=== PATIENT | male | born 1985 | race Hispanic/Latino ===

== ENCOUNTER 2020-04-07 20:21 | Emergency (ER) | payer OTHER, SELFPAY ==
--- OUTSIDE RECORDS SUMMARY | 2020-04-07 20:24 | XMS REPORT | Continuity of Care Document ---
:1985 Author Organization [facility] t Address [address] [place] [address] Care Team Providers Name Role Phone Jamilah VALENCIA, Jose Rafael Attending Clinician Unavailable Lab, Fam Pob I Attending Clinician Unavailable Doctor Unassigned, Name Attending Clinician Unavailable Ric CARRASCO, Alexander Attending Clinician Problems This patient has no known problems. Allergies, Adverse Reactions, Alerts This patient has no known allergies or adverse reactions. Medications This patient has no known medications. Procedures This patient has no known procedures. Encounters Start End Encounter Admission Attending Care Care Encounter Source Date/Time Date/Time Type Type Clinicians Facility Department ID 2019-08-21 2019-08-21 Telephone Julia GORDON [id number] 00:00:00 00:00:00 Carol weinstein [id number] [place] [id number] [id number] 2019-08-19 2019-08-19 Laboratory Lab, [facility] [id number] 13:08:25 13:28:25 Only Fam Pob I Health [id number] [place] [id number] [place] [phone] [address] 2019-08-19 2019-08-19 Letter Doctor GORDON [id number] 00:00:00 00:00:00 (Out) Unassigned, DARREN [id number] [place] [id number] [id number] 2019-06-05 2019-06-05 Telemedici ERICA LariosMB [id number] 07:17:50 07:47:50 ne Visit Tacho Curry [id number] [place] [id number] [facility] [phone] [facility] 044 Building Results This patient has no known results.
--- NOTE | 2020-04-07 21:46 | EDPHYS ---
Physician Documentation [facility] Name: Blas Palma Jr Age: 34 yrs Sex: Male : 1985 Arrival Date: 04/07/2020 Time: 20:28 Bed 28 Private MD: Panfilo Gore HPI: 04/07 21:22 This 34 yrs old Male presents to ER via Ambulatory with complaints of Penile shamika Problem. 21:22 The patient presents with a possible STD exposure. Onset: The symptoms/episode shamika began/occurred 3 day(s) ago. Modifying factors: The symptoms are alleviated by nothing, the symptoms are aggravated by movement, pressure. Associated signs and symptoms: The patient has no apparent associated signs or symptoms. Severity of symptoms: At their worst the symptoms were mild, moderate, in the emergency department the symptoms are unchanged. The patient has not experienced similar symptoms in the past. Historical: - Allergies: 20:32 No Known Allergies; ll1 - PMHx: 20:32 Hypertension; ll1 - PSHx: 20:32 None; ll1 - Immunization history:: Flu vaccine is not up to date. - Social history:: Smoking status: Patient denies any tobacco usage or history of. - Family history:: not pertinent. ROS: 21:22 Constitutional: Negative for fever, chills, and weight loss, Eyes: Negative for injury, shamika pain, redness, and discharge, ENT: Negative for injury, pain, and discharge, Neck: Negative for injury, pain, and swelling, Cardiovascular: Negative for chest pain, palpitations, and edema, Respiratory: Negative for shortness of breath, cough, wheezing, and pleuritic chest pain, Abdomen/GI: Negative for abdominal pain, nausea, vomiting, diarrhea, and constipation, Back: Negative for injury and pain, MS/Extremity: Negative for injury and deformity, Skin: Negative for injury, rash, and discoloration, Neuro: Negative for headache, weakness, numbness, tingling, and seizure, Psych: Negative for depression, anxiety, suicide ideation, homicidal ideation, and hallucinations, Allergy/Immunology: Negative for hives, rash, and allergies, Endocrine: Negative for neck swelling, polydipsia, polyuria, polyphagia, and marked weight changes, Hematologic/Lymphatic: Negative for swollen nodes, abnormal bleeding, and unusual bruising. 21:22 : Positive for burning with urination, penile discharge, penile pain, of the head of penis and meatus. Exam: 21:22 Constitutional: This is a well developed, well nourished patient who is awake, alert, shamika and in no acute distress. Head/Face: Normocephalic, atraumatic. Eyes: Pupils equal round and reactive to light, extra-ocular motions intact. Lids and lashes normal. Conjunctiva and sclera are non-icteric and not injected. Cornea within normal limits. Periorbital areas with no swelling, redness, or edema. ENT: Nares patent. No nasal discharge, no septal abnormalities noted. Tympanic membranes are normal and external auditory canals are clear. Oropharynx with no redness, swelling, or masses, exudates, or evidence of obstruction, uvula midline. Mucous membranes moist. Neck: Trachea midline, no thyromegaly or masses palpated, and no cervical lymphadenopathy. Supple, full range of motion without nuchal rigidity, or vertebral point tenderness. No Meningismus. Chest/axilla: Normal chest wall appearance and motion. Nontender with no deformity. No lesions are appreciated. Cardiovascular: Regular rate and rhythm with a normal S1 and S2. No gallops, murmurs, or rubs. Normal PMI, no JVD. No pulse deficits. Respiratory: Lungs have equal breath sounds bilaterally, clear to auscultation and percussion. No rales, rhonchi or wheezes noted. No increased work of breathing, no retractions or nasal flaring. Abdomen/GI: Soft, non-tender, with normal bowel sounds. No distension or tympany. No guarding or rebound. No evidence of tenderness throughout. Back: No spinal tenderness. No costovertebral tenderness. Full range of motion. Skin: Warm, dry with normal turgor. Normal color with no rashes, no lesions, and no evidence of cellulitis. MS/ Extremity: Pulses equal, no cyanosis. Neurovascular intact. Full, normal range of motion. Neuro: Awake and alert, GCS 15, oriented to person, place, time, and situation. Cranial nerves II-XII grossly intact. Motor strength 5/5 in all extremities. Sensory grossly intact. Cerebellar exam normal. Normal gait. Psych: Awake, alert, with orientation to person, place and time. Behavior, mood, and affect are within normal limits. 21:22 : CVA tenderness, is absent, Male external genitalia: Patient is not circumisioned. erythema, lesion, of the head of penis and meatus, draining, erythematous, painful. 21:22 Musculoskeletal/extremity: Extremities: grossly normal except: erythema, pain, swelling, tenderness, Circulation is intact in all extremities. Sensation intact. Compartment Syndrome exam of affected extremity: is normal. Vital Signs: 20:29 BP 175 / 110; Pulse 97; Resp 17; Temp 97.9; Pulse Ox 99% ; Weight 104.33 kg; Height 5 ll1 ft. 9 in. (175.26 cm); Pain 4/10; 20:29 Body Mass Index 33.96 (104.33 kg, 175.26 cm) ll1 MDM: 20:33 Patient medically screened. [facility] 21:25 Differential diagnosis: UTI, urinary retention. Data reviewed: vital signs, nurses [facility] notes. Data interpreted: risk and compliance analytics director: not applicable for this patient encounter. Pulse oximetry: is not applicable for this patient encounter. on. Counseling: I had a detailed discussion with the patient and/or guardian regarding: the historical points, exam findings, and any diagnostic results supporting the discharge/admit diagnosis, the presence of at least one elevated blood pressure reading (>120/80) during this emergency department visit, lab results. 04/07 21:21 Order name: Wound Culture: HSV [facility] 04/07 21:22 Order name: Urine Culture [facility] 04/07 21:52 Order name: Glucose, Ancillary Testing [facility] 04/07 21:21 Order name: Blood Glucose Level; Complete Time: 21:54 [facility] 04/07 21:21 Order name: Urine Dipstick-Ancillary (obtain specimen); Complete Time: 21:51 [facility] Administered Medications: 21:51 Drug: Zithromax 1 grams Route: PO; 21:51 Drug: Rocephin (cefTRIAXone) 1 grams Route: IM; Site: right gluteus; 21:51 Drug: Valtrex 1000 mg Route: PO; 21:52 Drug: Doxycycline 200 mg Route: PO; Disposition: 04/07/20 21:45 Discharged to Home. Impression: Essential (primary) hypertension, Ulcer of penis - MULTIPLE. - Condition is Stable. - Discharge Instructions: Hypertension, Sexually Transmitted Disease, Sexually Transmitted Disease, Avbk-ii-[id number], Hypertension, Srhd-vz-[id number]. - Prescriptions for Bactroban 2 % Topical Ointment - Apply to affected area 1 application by TOPICAL route every 12 hours; 15 gram. Valtrex 1 g Oral Tablet - take 1 tablet by ORAL route every 12 hours for 10 days; 20 tablet. Doxycycline Hyclate 100 mg Oral Tablet - take 1 tablet by ORAL route every 12 hours; 20 tablet. - Medication Reconciliation Form, Thank You Letter, Antibiotic Education, Prescription Opioid Use form. - Follow up: Private Physician; When: 2 - 3 days; Reason: Recheck today's complaints, Continuance of care, Re-evaluation by your physician. Follow up: Edgar Padgett MD; When: 2 - 3 days; Reason: Recheck today's complaints, Re-evaluation by your physician. - Problem is new. - Symptoms have improved. Signatures: Dispatcher [employer] EDPanfilo Lee MD MD cha Habalo, Winsy, RN RN Monica Alves RN RN ll1 Corrections: (The following items were deleted from the chart) 22:16 21:45 04/07/2020 21:45 Discharged to Home. Impression: Essential (primary) wh hypertension; Ulcer of penis - MULTIPLE. Condition is Stable. Forms are Medication Reconciliation Form, Thank You Letter, Antibiotic Education, Prescription Opioid Use. Follow up: Private Physician; When: 2 - 3 days; Reason: Recheck today's complaints, Continuance of care, Re-evaluation by your physician. Follow up: Edgar Padgett; When: 2 - 3 days; Reason: Recheck today's complaints, Re-evaluation by your physician. Problem is new. Symptoms have improved. shamika
--- NOTE | 2020-04-07 21:46 | ER ---
Nurse's Notes [facility] Name: Blas Palma Jr Age: 34 yrs Sex: Male : 1985 Arrival Date: 04/07/2020 Time: 20:28 Bed 28 Private MD: Diagnosis: Essential (primary) hypertension;Ulcer of penis-MULTIPLE Presentation: 04/07 20:29 Chief complaint: Patient states: Sore/blisters to penile area for 5 days. Was on ll1 medicine for a yeast infection last week. Coronavirus screen: Client denies travel out of the [place] in the last 14 days. At this time, the client does not indicate any symptoms associated with coronavirus-19. Ebola Screen: Patient denies travel to an Ebola-affected area in the 21 days before illness onset. Initial Sepsis Screen: Does the patient meet any 2 criteria? HR > 90 bpm. No. Patient's initial sepsis screen is negative. Does the patient have a suspected source of infection? Yes: Other: penile blisters. Risk Assessment: Do you want to hurt yourself or someone else? Patient reports no desire to harm self or others. Onset of symptoms was April 03, 2020. 20:29 Method Of Arrival: Ambulatory ll1 20:29 Acuity: MARISSA 4 ll1 Historical: - Allergies: 20:32 No Known Allergies; ll1 - PMHx: 20:32 Hypertension; ll1 - PSHx: 20:32 None; ll1 - Immunization history:: Flu vaccine is not up to date. - Social history:: Smoking status: Patient denies any tobacco usage or history of. - Family history:: not pertinent. Screenin:45 Abuse screen: Denies threats or abuse. Denies injuries from another. Nutritional wh screening: No deficits noted. Tuberculosis screening: No symptoms or risk factors identified. Fall Risk None identified. Assessment: 20:45 General: Appears in no apparent distress. Behavior is calm, cooperative, appropriate wh for age. Pain: Complains of pain in penile pain. Neuro: Level of Consciousness is awake, alert, obeys commands, Oriented to person, place, time, situation, Appropriate for age. Cardiovascular: Capillary refill < 3 seconds. Respiratory: Airway is patent Respiratory effort is even, unlabored, Respiratory pattern is regular, symmetrical. GI: Abdomen is flat. : Blisters noted Lesions noted on penis. EENT: No signs and/or symptoms were reported regarding the EENT system. Derm: Skin is intact, is healthy with good turgor, Skin is pink, warm \T\ dry. normal. Musculoskeletal: Circulation, motion, and sensation intact. Vital Signs: 20:29 BP 175 / 110; Pulse 97; Resp 17; Temp 97.9; Pulse Ox 99% ; Weight 104.33 kg; Height 5 ll1 ft. 9 in. (175.26 cm); Pain 4/10; 20:29 Body Mass Index 33.96 (104.33 kg, 175.26 cm) ll1 ED Course: 20:28 Patient arrived in ED. 2 20:31 Triage completed. 1 20:32 Arm band placed on Patient placed in an exam room, on a stretcher. 1 20:33 Sohan Lewis, RN is Primary Nurse. 20:33 Panfilo Gannon MD is Attending Physician. [facility] 21:45 Edgar Padgett MD is Referral Physician. [facility] 21:45 Patient has correct armband on for positive identification. Bed in low position. Call light in reach. Side rails up X 1. Pulse ox on. NIBP on. 22:15 No provider procedures requiring assistance completed. Patient did not have IV access during this emergency room visit. Administered Medications: 21:51 Drug: Zithromax 1 grams Route: PO; 21:51 Drug: Rocephin (cefTRIAXone) 1 grams Route: IM; Site: right gluteus; 21:51 Drug: Valtrex 1000 mg Route: PO; 21:52 Drug: Doxycycline 200 mg Route: PO; Outcome: 21:45 Discharge ordered by . [facility] 22:15 Discharged to home ambulatory. 22:15 Condition: stable 22:15 Discharge instructions given to patient, Instructed on discharge instructions, follow up and referral plans. wound care, POC Demonstrated understanding of instructions, follow-up care, medications, wound care, POC Prescriptions given X 3. 22:16 Patient left the ED. Signatures: Panfilo Gannon MD MD cha Habalo, Winsy, RN ANNIE Sami Brothers 2 Monica Alves RN RN 1
[2020-04-07] MEDS ORDERED: WATER FOR INJ,STERILE 10 ML ONE (21:49)
[2020-04-07] MEDS ORDERED: DOXYCYCLINE 100 MG CAP PO ONE (21:49)
[2020-04-07] MEDS ORDERED: AZITHROMYCIN 250 MG TAB ONE (21:49)
[2020-04-07] MEDS ORDERED: CEFTRIAXONE 1000 MG/VIAL ONE (21:49)
[2020-04-07] MEDS ORDERED: VALACYCLOVIR 500 MG TAB ONE (21:55)
[2020-04-08 10:26] VITALS: BP 175/110; TEMP 97.9; O2SAT 99
== END 2020-04-07 22:16 | disposition home or self-care (01) ==
LOC: ER 20:21
DX: N48.5 Ulcer of penis (principal); I10 Essential (primary) hypertension
CPT/HCPCS: 82947; 87086; 87088; 87252; 96372; 99283

== ENCOUNTER 2020-09-11 02:55 | Emergency (ER) | payer SELFPAY ==
--- OUTSIDE RECORDS SUMMARY | 2020-09-11 02:57 | XMS REPORT | Continuity of Care Document ---
:1985 Author Organization [facility] t Address [address] [place] [address] Care Team Providers Name Role Phone Jamilah [...] ID 2019-08-21 2019-08-21 Telephone Julia GORDON [id number] 00:00:00 00:00:00 Carol weinstein [id number] [place] [id number] [id number] 2019-08-19 2019-08-19 Laboratory Lab, [facility] [id number] 13:08:25 13:28:25 Only Fam Pob I Health [id number] [place] [id number] [place] [phone] nal 0[address] 2019-08-19 2019-08-19 Letter Doctor GORDON [id number] 00:00:00 00:00:00 (Out) UnassDARREN brody [id number] [place] [id number] [id number] 2019-06-05 2019-06-05 Telemedici Ric NHBIANCA [id number] 07:17:50 07:47:50 ne Visit Tacho Curry [id number] [place] [id number] [facility] [phone] [place] [address] Building Results This patient has no known results.
[2020-09-11 05:51] LABS: Blood Gas Oxyhemoglobin 92.5 % (94-97); Blood O2 Saturation 94.1 % (92-98.5)
[2020-09-11] MEDS ORDERED: NA CHLORIDE 0.9% 1,000 ML ONE (06:18)
[2020-09-11 06:27] LABS: Absolute Lymphocytes (CBC) 1.2 K/uL (0.7-4.9); Basophils % 0.2 % (0-1.3); Hematocrit 44.6 % (39.6-49.0); Lymphocytes % 14.7 % (15.3-44.8); MPV 7.9 fL (7.6-11.3)
[2020-09-11 06:33] LABS: BUN Blood Urea Nitrogen 8 mg/dL (7-18); Bicarbonate 25 mmol/L (21-32); Glucose Level 107 mg/dL (74-106); Potassium 3.7 mmol/L (3.5-5.1); Sodium Level 130 mmol/L (136-145)
[2020-09-11] MEDS ORDERED: DIPHENOX/ATROP SULF 1 TAB PO ONE (07:32)
--- NOTE | 2020-09-11 08:18 | RAD REPORT ---
EXAM DESCRIPTION: CT - Chest For Pe Angio - 09/11/2020 6:23 am CLINICAL HISTORY: DYSPNEA COMPARISON: No comparisons FINDINGS: Chest Wall: No suspicious thyroid nodules or pathologic lymphadenopathy. Lungs: Mild to moderate bilateral ground-glass airspace disease. Pleura: No significant effusions or pneumothorax. Mediastinum/harshal: No pathologic lymphadenopathy. Pulmonary arteries/Aorta: No filling defect identified. No aortic aneurysm. Limited by motion. Heart: No significant pericardial effusion. Normal heart size. Upper abdomen: No acute abnormality. Bones: No acute abnormality. IMPRESSION: Negative for pulmonary embolism. Bilateral airspace disease in a pattern consistent with Covid-19 pneumonia.
[2020-09-11] MEDS ORDERED: FAMOTIDINE 20 MG/2 ML VIAL IV ONE (08:29)
--- NOTE | 2020-09-11 08:31 | RAD REPORT ---
EXAM DESCRIPTION: RAD - Chest Single View - 09/11/2020 4:46 am CLINICAL HISTORY: Cough;Dyspnea COMPARISON: No comparisons FINDINGS: Patchy areas of bilateral airspace disease which is mild peer The heart size is within nor mal limits.No acute osseous abnormality. No significant pleural effusions or pneumothorax. IMPRESSION: Mild patchy bilateral airspace disease concerning for multifocal pneumonia.
[2020-09-11] MEDS ORDERED: AZITHROMYCIN IV 500 MG in NA CHLORIDE 0.9% 250 ML IVPB ONE (09:00)
[2020-09-11] MEDS ORDERED: [UNRECOGNIZED DRUG - OTHER] IV ONE (09:00)
[2020-09-11] MEDS ORDERED: ASPIRIN 81 MG CHEWABLE TABLET ONE ×2 (09:22→11:13)
[2020-09-11] MEDS ORDERED: ZINC SULFATE 220 MG CAP ONE (09:22)
--- NOTE | 2020-09-11 10:35 | EDPHYS ---
Physician Documentation [facility] Name: Blas Palma Jr Age: 35 yrs Sex: Male : 1985 Arrival Date: 09/11/2020 Time: 02:59 Bed 14 Private MD: ED Physician Panfilo Gannon HPI: 09/11 06:14 This 35 yrs old Male presents to ER via Ambulatory with complaints of pkl Breathing Difficulty. 06:14 The patient has shortness of breath at rest. Onset: The symptoms/episode began/occurred pkl 3 day(s) ago. Associated signs and symptoms: Pertinent positives: non-productive cough, diarrhea. Historical: - Allergies: 03:52 No Known Allergies; bb - Home Meds: 03:52 None [Active]; bb - PMHx: 03:52 Hypertension; bb - PSHx: 03:52 None; bb - Immunization history:: Adult Immunizations up to date, Client reports having NOT received the Covid vaccine. - Social history:: Smoking status: Patient denies any tobacco usage or history of. ROS: 06:14 Eyes: Negative for injury, pain, redness, and discharge, ENT: Negative for injury, pkl pain, and discharge, Neck: Negative for injury, pain, and swelling, Cardiovascular: Negative for chest pain, palpitations, and edema. 06:14 Respiratory: Positive for shortness of breath, at rest. 06:14 Abdomen/GI: Positive for diarrhea. 06:14 Back: Negative for acute changes. 06:14 : Negative for urinary symptoms. 06:14 MS/extremity: Negative for acute changes. 06:14 Skin: Negative for rash. 06:14 Neuro: Negative for altered mental status, loss of consciousness. Exam: 06:14 Head/Face: Normocephalic, atraumatic. Eyes: Pupils equal round and reactive to light, pkl extra-ocular motions intact. Lids and lashes normal. Conjunctiva and sclera are non-icteric and not injected. Cornea within normal limits. Periorbital areas with no swelling, redness, or edema. ENT: Nares patent. No nasal discharge, no septal abnormalities noted. Tympanic membranes are normal and external auditory canals are clear. Oropharynx with no redness, swelling, or masses, exudates, or evidence of obstruction, uvula midline. Mucous membranes moist. Neck: Trachea midline, no thyromegaly or masses palpated, and no cervical lymphadenopathy. Supple, full range of motion without nuchal rigidity, or vertebral point tenderness. No Meningismus. Chest/axilla: Normal chest wall appearance and motion. Nontender with no deformity. No lesions are appreciated. Cardiovascular: Regular rate and rhythm with a normal S1 and S2. No gallops, murmurs, or rubs. Normal PMI, no JVD. No pulse deficits. 06:14 Respiratory: the patient does not display signs of respiratory distress, Respirations: normal, Breath sounds: rales, that are mild, are scattered. 06:14 Abdomen/GI: Bowel sounds: normal, Palpation: abdomen is soft and non-tender, in all quadrants. 06:14 Back: Exam negative for acute changes. 06:14 : Exam negative for acute changes. 06:14 Musculoskeletal/extremity: Exam is negative for acute changes. 06:14 Skin: Exam negative for rash. 06:14 Neuro: Orientation: is normal, Mentation: is normal, Cranial nerves: grossly normal, Motor: is normal. Vital Signs: 03:50 BP 123 / 90; Pulse 118; Resp 22; Temp 99.3(O); Pulse Ox 95% on R/A; Weight 111.13 kg bb (R); Height 5 ft. 9 in. (175.26 cm) (R); Pain 5/10; 05:53 BP 141 / 84; Pulse 116; Resp 24 S; Pulse Ox 93% on R/A; bb 07:00 BP 140 / 78; Pulse 103; Resp 16; Pulse Ox 92% on R/A; bp 08:00 BP 122 / 96; Pulse 95; Resp 16; Pulse Ox 92% ; bp 09:00 BP 134 / 98; Pulse 104; Resp 20; Pulse Ox 92% ; bp 10:00 BP 118 / 52; Pulse 24; Resp 93; Pulse Ox 90% ; bp 11:00 BP 143 / 81; Pulse 93; Resp 20; Pulse Ox 90% ; bp 11:59 BP 134 / 77; Pulse 98; Resp 20; Temp 99.1; Pulse Ox 92% on R/A; bp 03:50 Body Mass Index 36.18 (111.13 kg, 175.26 cm) MDM: 05:26 Patient medically screened. pkl 08:40 Differential diagnosis: CHF exacerbation, Chronic Obstructive Pulmonary Disease shamika pneumonia, Pneumothorax pulmonary edema, Pulmonary Embolism reactive airway disease. Antibiotic administration: The patient is discharged and will get outpatient antibiotics, Erythromycin. The patient's Wells Deep Vein Thrombosis Score was calculated as follows: Heart Rate >100 BPM (1.5 Pts) Total Score: 0-2 Pts- Low Risk. The patient's pulmonary embolism risk score was calculated as follows: the patients heart rate is greater than 100 beats per minute (1.5 Pts) Total Score: 0-2 points. This patient was found to be at low risk for a pulmonary embolism by using the Well's assessment criteria. Immunization status:. Data reviewed: vital signs, nurses notes, lab test result(s), EKG, radiologic studies, CT scan, plain films. Data interpreted: milieu counselor: rate is 103 beats/min. Test interpretation: by ED physician or midlevel provider: ECG, plain radiologic studies. Counseling: I had a detailed discussion with the patient and/or guardian regarding: the historical points, exam findings, and any diagnostic results supporting the discharge/admit diagnosis, lab results, radiology results, the need for outpatient follow up, for definitive care, a family practitioner, a turn supervisor. 09/11 05:37 Order name: CBC with Diff; Complete Time: 07:26 pkl 09/11 05:37 Order name: Chem 7; Complete Time: 07: pkl 09/11 05:37 Order name: Lactate; Complete Time: 07:26 pkl 09/11 05:39 Order name: ABG pkl 09/11 03:56 Order name: XRAY Chest (1 view); Complete Time: 08:40 bb 09/11 05:37 Order name: CT Chest For PE Angio; Complete Time: 08:40 pkl 09/11 05:39 Order name: ABG Arterial Blood Gas; Complete Time: 06:20 EDMS 09/11 05:43 Order name: SARS-COV-2 RT PCR; Complete Time: 06:20 EDMS 09/11 06:39 Order name: CREATININE WHOLE BLOOD; Complete Time: 07:26 EDMS 09/11 07:47 Order name: CRP; Complete Time: 09:13 pkl 09/11 07:57 Order name: Ferritin; Complete Time: 09:13 shamika Administered Medications: 06:00 Drug: NS 0.9% 1000 ml Route: IV; Rate: 1000 ml; Site: left antecubital; bp 07:00 Drug: LoMOTIL (diphenoxylate-atropine) 2 tabs Route: PO; bp 07:21 Follow up: Response: No adverse reaction bp 08:15 Drug: Pepcid (famotidine) 20 mg Route: IVP; Site: right antecubital; bp 09:55 Follow up: Response: No adverse reaction bp 08:45 Drug: Zithromax (azithromycin) 500 mg Route: IVPB; Infused Over: 1 hrs; Site: right bp antecubital; 12:02 Follow up: IV Status: Completed infusion; IV Intake: 250ml bp 09:00 Drug: REGEN-COV Dose Pack 120 mg/mL-120 mg/mL (EUA) 1 vials Route: IV; Rate: per bp protocol; Site: right antecubital; 12:02 Follow up: IV Status: Completed infusion; IV Intake: 100ml bp 09:00 Drug: Zinc Sulfate 220 mg Route: PO; bp 11:37 Follow up: Response: No adverse reaction bp 09:00 Drug: Aspirin Chewable Tablet 324 mg Route: PO; bp 11:37 Follow up: Response: No adverse reaction bp 09:54 Not Given (NON-FORMULARYy): Alpha Lipoic Acid 600 mg PO once bp 09:54 Not Given (NON-FORMULARYy): Glutathione 250 mg PO once bp 10:00 Drug: Albuterol HFA Inhaler 4 puffs Route: Inhalation; bp 10:00 Drug: SOLU-Medrol (methylPrednisoLONE) 125 mg Route: IVP; Site: right antecubital; bp 11:37 Follow up: Response: No adverse reaction bp 10:00 Drug: predniSONE 40 mg Route: PO; bp 11:36 Follow up: Response: No adverse reaction bp 10:30 Drug: Ivermectin 12 mg Route: PO; bp 11:37 Follow up: Response: No adverse reaction bp 11:10 Not Given (non-formularyy): Vit A-Vit C-Vit N-Ep-Rbdrrsrbm 10 grams PO once bp Disposition Summary: 09/11/20 10:34 Discharge Ordered Location: Home shamika Problem: new shamika Symptoms: have improved shamika Condition: Stable shamika Diagnosis - Pneumonia due to SARS-associated coronavirus shamika - Acute upper respiratory infection, unspecified shamika - Fever, unspecified shamika - Essential (primary) hypertension shamika - Obesity, unspecified [facility] Followup: shamika - With: Private Physician - When: 2 - 3 days - Reason: Trouble breathing, Recheck today's complaints, Continuance of care, Re-evaluation by your physician Followup: shamika - With: - When: 2 - 3 days - Reason: Recheck today's complaints, Re-evaluation by your physician Discharge Instructions: - Discharge Summary Sheet shamika - Fever, Adult shamika - Upper Respiratory Infection, Adult [facility] - Cool Mist Vaporizer shamika - Upper Respiratory Infection, Adult, [id number]-[id number] shamika - Aspirin and Your Heart [facility] - Cough, Adult [facility] - COVID-19 [facility] Forms: - Medication Reconciliation Form [facility] - Thank You Letter [facility] - Antibiotic Education [facility] - Prescription Opioid Use [facility] Prescriptions: - NAC - take 600 milligram by ORAL route 2 times per day; 30 milligram; Refills: 0, [facility] Product Selection Permitted - albuterol sulfate 90 mcg/actuation Inhalation HFA aerosol inhaler - inhale 2 puff by INHALATION route every 4-6 hours; 1 Pump; Refills: 0, Product [facility] Selection Permitted - alpha lipoic acid - take 600 milligram by ORAL route 2 times per day; 30 milligram; Refills: 0, [facility] Product Selection Permitted - vit B-Q-nzqcdr-zinc-selenometh - take 1 tablet by ORAL route 3 times per day; 60 tablet; Refills: 0, Product [facility] Selection Permitted - vit D3-vit F-uyjzurwbe-segg - take 1 tablet by ORAL route once daily; 30 tablet; Refills: 0, Product [facility] Selection Permitted - glutathione (bulk) - take 250 milligram by ORAL route 2 times per day; 60 milligram; Refills: 0, [facility] Product Selection Permitted - Pepcid 20 mg Oral Tablet - take 1 tablet by ORAL route every 12 hours for 15 days; 30 tablet; Refills: 0, [facility] Product Selection Permitted - Zithromax 500 mg Oral Tablet - take 1 tablet by ORAL route once daily for 5 days; 5 tablet; Refills: 0, [facility] Product Selection Permitted - ivermectin 3 mg Oral tablet - take 4 tablet by ORAL route once daily; 16 tablet; Refills: 0, Product [facility] Selection Permitted - Prednisone 20 mg Oral Tablet - take 2 tablets by ORAL route once daily for 5 days; 10 tablet; Refills: 0, [facility] Product Selection Permitted Signatures: Dispatcher [employer] EDMI Panfilo Gannon MD MD cha Lam, Pin, MD MD pkl Ballard, Brenda, RN RN Walter Guardado, RN RN bp Corrections: (The following items were deleted from the chart) 04:31 03:57 CORONAVIRUS+MR.LAB.BRZ ordered. EDMS EDMS 05:38 05:37 CREATININE, SERUM+C.LAB.BRZ ordered. EDMS EDMS
--- NOTE | 2020-09-11 10:35 | ER ---
Nurse's Notes [facility] Name: Blas Palma Jr Age: 35 yrs Sex: Male : 1985 Arrival Date: 09/11/2020 Time: 02:59 Bed 14 Private MD: Diagnosis: Pneumonia due to SARS-associated coronavirus;Acute upper respiratory infection, unspecified;Fever, unspecified;Essential (primary) hypertension;Obesity, unspecified Presentation: 09/11 03:50 Chief complaint: Patient states: he has had a bad cough with difficulty breathing and bb diarrhea x 3 days. Coronavirus screen: cough unrelated to allergies, diarrhea, difficulty breathing, Client presents with at least one sign or symptom that may indicate coronavirus-19. Standard/surgical mask placed on the client. Ebola Screen: No symptoms or risks identified at this time. Initial Sepsis Screen: Does the patient meet any 2 criteria? No. Patient's initial sepsis screen is negative. Does the patient have a suspected source of infection? No. Patient's initial sepsis screen is negative. Risk Assessment: Do you want to hurt yourself or someone else? Patient reports no desire to harm self or others. Onset of symptoms was September 08, 2020. 03:50 Method Of Arrival: Ambulatory bb 03:50 Acuity: MARISSA 3 bb Triage Assessment: 03:52 General: Appears in no apparent distress. Behavior is calm, cooperative. Pain: bb Complains of pain in rib area. Neuro: Level of Consciousness is awake, alert, obeys commands, Oriented to person, place, time, situation. Cardiovascular: Capillary refill < 3 seconds Patient's skin is warm and dry. Respiratory: Reports shortness of breath cough that is Onset: The symptoms/episode began/occurred 3 or 4 days ago, the patient has mild shortness of breath. GI: Reports diarrhea. Derm: Skin is pink, warm \T\ dry. Musculoskeletal: Circulation, motion, and sensation intact. Historical: - Allergies: 03:52 No Known Allergies; bb - Home Meds: 03:52 None [Active]; bb - PMHx: 03:52 Hypertension; bb - PSHx: 03:52 None; bb - Immunization history:: Adult Immunizations up to date, Client reports having NOT received the Covid vaccine. - Social history:: Smoking status: Patient denies any tobacco usage or history of. Screenin:30 Abuse screen: Denies threats or abuse. Nutritional screening: No deficits noted. bb Tuberculosis screening: No symptoms or risk factors identified. Fall Risk None identified. Assessment: 05:30 General: Appears in no apparent distress. Behavior is calm, cooperative. Pain: Denies bb pain. Neuro: Level of Consciousness is awake, alert, obeys commands, Oriented to person, place, time, situation. Cardiovascular: Capillary refill < 3 seconds Patient's skin is warm and dry. Rhythm is sinus tachycardia. Respiratory: Airway is patent Respiratory effort is shallow, Respiratory pattern is tachypnea. GI: Reports diarrhea. : No signs and/or symptoms were reported regarding the genitourinary system. Derm: Skin is pink, warm \T\ dry. Musculoskeletal: Circulation, motion, and sensation intact. 06:12 Reassessment: pt to CT scan via wheelchair accompanied by histologic technician. bb 07:00 Reassessment: RECD REPORT FROM SOHAN VALENCIA. 35YO HM P/W SOB, COVID +. DISPO PENDING. bp Respiratory: Breath sounds with crackles bilaterally. Breath sounds with wheezes bilaterally. 09:00 Reassessment: No changes from previously documented assessment. Patient and/or family bp updated on plan of care and expected duration. Pain level reassessed. Patient is alert, oriented x 3, equal unlabored respirations, skin warm/dry/pink. ADMIT INITIATED BY DR HYATT. EMILY PENDING FROM PHARMACY. 11:00 Reassessment: Reassessment: No changes from previously documented assessment. Patient bp and/or family updated on plan of care and expected duration. Pain level reassessed. Patient is alert, oriented x 3, equal unlabored respirations, skin warm/dry/pink. ADMIT CANCELLED BY ATTENDING. PT TBDC AFTER ALL MEDIACATIONS. 11:59 Reassessment: PT D/C HOME AMBULATORY, DX WITH COVID PNA. PT INSTRUCTED TO REMAIN bp ISOLATED FOR 10 DAYS OR UNTIL NEGATIVE COVID. Vital Signs: 03:50 BP 123 / 90; Pulse 118; Resp 22; Temp 99.3(O); Pulse Ox 95% on R/A; Weight 111.13 kg bb (R); Height 5 ft. 9 in. (175.26 cm) (R); Pain 5/10; 05:53 BP 141 / 84; Pulse 116; Resp 24 S; Pulse Ox 93% on R/A; bb 07:00 BP 140 / 78; Pulse 103; Resp 16; Pulse Ox 92% on R/A; bp 08:00 BP 122 / 96; Pulse 95; Resp 16; Pulse Ox 92% ; bp 09:00 BP 134 / 98; Pulse 104; Resp 20; Pulse Ox 92% ; bp 10:00 BP 118 / 52; Pulse 24; Resp 93; Pulse Ox 90% ; bp 11:00 BP 143 / 81; Pulse 93; Resp 20; Pulse Ox 90% ; bp 11:59 BP 134 / 77; Pulse 98; Resp 20; Temp 99.1; Pulse Ox 92% on R/A; bp 03:50 Body Mass Index 36.18 (111.13 kg, 175.26 cm) bb ED Course: 02:59 Patient arrived in ED. bp1 03:52 Triage completed. bb 03:52 Arm band placed on Patient placed in waiting room, Patient notified of wait time. Labs bb ordered per protocol. X-ray ordered. 04:46 XRAY Chest (1 view) In Process Unspecified. EDMS 05:26 Saad Hyatt MD is Attending Physician. pkl 05:30 Patient has correct armband on for positive identification. Bed in low position. Call bb light in reach. Side rails up X 1. Pulse ox on. NIBP on. 05:53 Samira Boone, RN is Primary Nurse. bb 06:00 Initial lab(s) drawn, by dc, sent to lab. Inserted saline lock: 18 gauge in right bb antecubital area, using aseptic technique. Blood collected. 06:23 CT Chest For PE Angio In Process Unspecified. EDMS 06:59 Primary Nurse role handed off by Samira Boone, ANNIE bp 06:59 Walter Mcclure, RN is Primary Nurse. bp 07:55 Attending Physician role handed off by Saad Hyatt MD shamika 07:55 Panfilo Gannon MD is Attending Physician. shamika 10:34 Gabriel Blood MD is Referral Physician. shamika 11:59 No provider procedures requiring assistance completed. IV discontinued, intact, bp bleeding controlled, No redness/swelling at site. Pressure dressing applied. Administered Medications: 06:00 Drug: NS 0.9% 1000 ml Route: IV; Rate: 1000 ml; Site: left antecubital; bp 07:00 Drug: LoMOTIL (diphenoxylate-atropine) 2 tabs Route: PO; bp 07:21 Follow up: Response: No adverse reaction bp 08:15 Drug: Pepcid (famotidine) 20 mg Route: IVP; Site: right antecubital; bp 09:55 Follow up: Response: No adverse reaction bp 08:45 Drug: Zithromax (azithromycin) 500 mg Route: IVPB; Infused Over: 1 hrs; Site: right bp antecubital; 12:02 Follow up: IV Status: Completed infusion; IV Intake: 250ml bp 09:00 Drug: REGEN-COV Dose Pack 120 mg/mL-120 mg/mL (EUA) 1 vials Route: IV; Rate: per bp protocol; Site: right antecubital; 12:02 Follow up: IV Status: Completed infusion; IV Intake: 100ml bp 09:00 Drug: Zinc Sulfate 220 mg Route: PO; bp 11:37 Follow up: Response: No adverse reaction bp 09:00 Drug: Aspirin Chewable Tablet 324 mg Route: PO; bp 11:37 Follow up: Response: No adverse reaction bp 09:54 Not Given (NON-FORMULARYy): Alpha Lipoic Acid 600 mg PO once bp 09:54 Not Given (NON-FORMULARYy): Glutathione 250 mg PO once bp 10:00 Drug: Albuterol HFA Inhaler 4 puffs Route: Inhalation; bp 10:00 Drug: SOLU-Medrol (methylPrednisoLONE) 125 mg Route: IVP; Site: right antecubital; bp 11:37 Follow up: Response: No adverse reaction bp 10:00 Drug: predniSONE 40 mg Route: PO; bp 11:36 Follow up: Response: No adverse reaction bp 10:30 Drug: Ivermectin 12 mg Route: PO; bp 11:37 Follow up: Response: No adverse reaction bp 11:10 Not Given (non-formularyy): Vit A-Vit C-Vit R-Mu-Dkwtajsdn 10 grams PO once bp Intake: 12:02 IV: 250ml; Total: 250ml. bp 12:02 IV: 100ml; Total: 350ml. bp Outcome: 10:34 Discharge ordered by . shamika 11:59 Discharged to home ambulatory. bp 11:59 Condition: stable 11:59 Discharge instructions given to patient, Instructed on discharge instructions, follow up and referral plans. medication usage, Demonstrated understanding of instructions, follow-up care, medications, Prescriptions given X 10 12:03 Patient left the ED. bp Signatures: Dispatcher [employer] EDPanfilo Lee MD MD cha Lam, Pin, MD MD pkl Ballard, Brenda, RN RN Walter Guardado RN RN bp Isabela Ayala bp1
[2020-09-11] MEDS ORDERED: IVERMECTIN 3 MG TABLET PO ONE (11:00)
[2020-09-11] MEDS ORDERED: METHYLPREDNISOLONE 125 MG INJ ONE (11:13)
[2020-09-11] MEDS ORDERED: predniSONE 20 MG TAB ONE (11:13)
[2020-09-11] MEDS ORDERED: ALBUTEROL INHALER 60 PUFF/8 GM IH ONE (11:14)
[2020-09-11] MEDS ORDERED: THIAMINE HCL 100 MG TABLET ONE (11:24)
[2020-09-11] MEDS ORDERED: ASCORBIC ACID 500 MG TABLET ONE (11:25)
[2020-09-11] MEDS ORDERED: VITAMIN D 1000 UNIT TAB ONE (11:25)
[2020-09-11 12:23] VITALS: BP 134/77; TEMP 99.1; O2SAT 92
== END 2020-09-11 12:03 | disposition home or self-care (01) ==
LOC: ER 02:55
DX: U07.1 COVID-19 (principal); J12.82 Pneumonia due to coronavirus disease 2019; J06.9 Acute upper respiratory infection, unspecified; I10 Essential (primary) hypertension; E66.9 Obesity, unspecified
CPT/HCPCS: 36415; 71045; 71275; 80048; 82565; 82728; 82805; 83605; 85025; 86140; 96365; 96366; 96375; 99285; J0456; J2930; J7030; J7050; J7512; Q9967; U0003